=== PATIENT | female | born 1935 | race Caucasian/White ===

== ENCOUNTER 2021-09-14 22:33 | Inpatient (IN) | payer OTHER, MEDICAID ==
[~2021-09-14] VITALS: Ht 157.5 cm; Wt 60.8 kg
[~2021-09-14 22:33] MED LIST: APRE30TA2 PO; ATOR20TA64 PO; CIPR500T5 PO; DEPS125 PO; GLIP5TAB26 PO; IBUP-1969 PO; INSU100V11 SQ; LEVO112T5 PO; MEMA5TAB PO; METO25TA6 PO; MIRT-114 PO
[2021-09-14 22:36] VITALS: BP_SYST 121
[2021-09-14] MEDS ORDERED: OLANZapine IntraMuscular 10 MG VIAL (FOR I.M. INJECTION ONLY) IM ONE (23:45)
[2021-09-14] MEDS ORDERED: NACL 0.9% 1,000 ML IV ONE (23:45)
[2021-09-15] MEDS ORDERED: OLANZapine 5 MG TABLET ONE ×2 (00:29→00:49)
[2021-09-15] MEDS ORDERED: OLANZapine 2.5 MG TABLET ONE (00:30)
[2021-09-15 00:38] LABS: BASOPHILS # (AUTO) 0.1 K/uL (0.0-0.2); EOSINOPHILS # (AUTO) 0.2 K/uL (0.0-0.4); EOSINOPHILS % (AUTO) 2.7 % (0.0-4.0); HEMATOCRIT 35.1 % (36-48); HEMOGLOBIN 12.1 g/dL (12.0-16.0); LYMPHOCYTES # (AUTO) 2.4 K/uL (1.0-5.5); LYMPHOCYTES % (AUTO) 33.7 % (20.5-51.5); MEAN CORPUSCULAR HEMOGLOBIN 33 pg (27-31); MEAN CORPUSCULAR HGB CONC 35 % (32-36); MEAN CORPUSCULAR VOLUME 95 fL (79.0-98.0); MONOCYTES # (AUTO) 0.6 K/uL (0.0-1.0); MONOCYTES % (AUTO) 8.3 % (1.7-9.3); NEUTROPHILS # (AUTO) 3.9 K/uL (1.8-7.7); NEUTROPHILS % (AUTO) 54.3 % (40.0-70.0); PLATELET COUNT (AUTO) 139 K/uL (130-430); RED BLOOD CELL COUNT(AUTO) 3.71 MIL/uL (4.2-6.2); RED CELL DISTRIBUTION WIDTH 13.5 % (9.0-15.0); WHITE BLOOD COUNT (AUTO) 7.2 K/uL (4.8-10.8)
[2021-09-15 00:45] LABS: ANION GAP 9 (5-15); CALCIUM 8.9 mg/dL (8.4-11.0); CHLORIDE 106 mmol/L (98-107); CREATININE 1.15 mg/dL (0.55-1.30); GLUCOSE 234 mg/dL (70-99); POTASSIUM 4.2 mmol/L (3.5-5.1); SODIUM SERUM 140 mmol/L (136-145); UREA NITROGEN, BLOOD 27 mg/dL (8-21)
[2021-09-15] MEDS ORDERED: OLANZapine 5 MG TABLET PO ONE (00:45)
[2021-09-15 00:49] LABS: PROTHROMBIN TIME 10.9 SECS (9.5-12.5)
[2021-09-15 01:01] LABS: ALANINE AMINOTRANSFERASE 22 U/L (12-78); ALBUMIN 3.4 g/dL (3.4-4.8); ASPARTATE AMINOTRANSFERASE 23 U/L (10-37); TOTAL BILIRUBIN 0.4 mg/dL (0.0-1.0)
[2021-09-15 01:06] LABS: ACETAMINOPHEN < 1 ug/mL (1-30); ALCOHOL, BLOOD < 3 mg/dL (<10)
[2021-09-15 01:36] LABS: BILIRUBIN,URINE NEGATIVE (NEGATIVE); BLOOD, URINE NEGATIVE (NEGATIVE); CLARITY/URINE SL CLOUDY (CLEAR); COLOR,URINE YELLOW (YELLOW); GLUCOSE,URINE 1+ (NEGATIVE); KETONES,URINE NEGATIVE (NEGATIVE); LEUKOCYTE ESTERASE ,URINE 1+ (NEGATIVE); NITRITE, URINE NEGATIVE (NEGATIVE); PH,URINE 5.5 (5.0-8.0); PROTEIN URINE NEGATIVE (NEGATIVE); UROBILINOGEN,URINE 0.2 (0.2-1.0)
[2021-09-15 01:56] LABS: BARBITURATE, URINE NEGATIVE (NEG <=200); BENZODIAZEPINE, URINE NEGATIVE (NEG <=150); CANNABINOID, URINE NEGATIVE (NEG <=50); COCAINE, URINE NEGATIVE (NEG <=150); METHAMPHETAMINES SCREEN,URINE NEGATIVE (NEG <=500); OPIATE, URINE NEGATIVE (NEG <=100); PHENCYCLIDINE SCREEN,URINE NEGATIVE (NEG <=25); UR TRICYCLIC ANTIDEPRESSANTS NEGATIVE (NEG <=300); URINE AMPHETAMINE NEGATIVE (NEG <=500); URINE METHADONE NEGATIVE (NEG <=200); URINE OXYCODONE SCREEN NEGATIVE (NEG <=100); URINE PROPOXYPHENE SCREEN NEGATIVE (NEG <=300)
[2021-09-15 02:20] LABS: BACTERIA,URINE FEW /HPF (None Seen); RBC,URINE 0-3 /HPF (0-3)
[2021-09-15] MEDS ORDERED: PIPERACILLIN/TAZO 3.375 GM in NS 50 ML IV ONE ×4 (03:00)
[2021-09-15] MEDS ORDERED: ONDANSETRON HCL 4 MG/2 ML VIAL IVP PRN (03:00)
[2021-09-15] MEDS ORDERED: PIPERACILLIN/TAZOBACTAM 3.375 GM/VIAL (ZOSYN) IV ONE (03:39)
[2021-09-15 04:17] VITALS: BP_SYST 128
[2021-09-15] MEDS ORDERED: DOCU-144 PO (05:59)
[2021-09-15] MEDS ORDERED: HYDR-500 PO (05:59)
[2021-09-15] MEDS ORDERED: BISA10SU61 RC (05:59)
[2021-09-15] MEDS ORDERED: TRAM50TA PO (05:59)
[2021-09-15] MEDS ORDERED: SENN8.6T19 PO (05:59)
[2021-09-15] MEDS ORDERED: ACET325T53 PO (05:59)
[2021-09-15] MEDS ORDERED: MOM PO (05:59)
[2021-09-15] MEDS ORDERED: INSU100V SQ (05:59)
[2021-09-15] MEDS ORDERED: CEPH250C PO (05:59)
[2021-09-15] MEDS ORDERED: DIPH25TA62 PO (05:59)
[2021-09-15] MEDS ORDERED: CRAN450T9 PO (05:59)
[2021-09-15] MEDS: INSULIN LISPRO SLIDING SCALE 100 UNITS/ML VIAL (humaLOG) SUBCUT SCH ×4 (06:45→21:27)
[2021-09-15 08:00] VITALS: BP_SYST 129
[2021-09-15] MEDS ORDERED: IBUPROFEN 600 MG TABLET PO PRN (09:00)
[2021-09-15] MEDS ORDERED: ACETAMINOPHEN 325 MG TABLET PO PRN (09:00)
[2021-09-15] MEDS: LEVOTHYROXINE SODIUM 0.112 MG TABLET PO SCH (10:09)
[2021-09-15] MEDS: glipiZIDE XL 5 MG TAB ( GLUCOTROL XL) PO SCH (10:09)
[2021-09-15] MEDS: MEMANTINE HCL 5 MG TABLET PO SCH ×2 (10:09→20:51)
[2021-09-15] MEDS: DOCUSATE SODIUM 100 MG CAPSULE PO SCH ×2 (10:09→20:51)
[2021-09-15] MEDS: DIVALPROEX SODIUM 125 MG CAP.(DEPAKOTE SPRINKLE) PO SCH (10:09)
[2021-09-15] MEDS: ATORVASTATIN 20 MG TABLET PO SCH (10:10)
[2021-09-15] MEDS: METOPROLOL TARTRATE 25 MG TABLET PO SCH (10:12)
[2021-09-15 12:00] VITALS: BP_SYST 146
[2021-09-15] MEDS: cefTRIAXone 1 GM in D5W 50 ML IV SCH (13:35)
[2021-09-15 16:00] VITALS: BP_SYST 116
[2021-09-15 19:30] VITALS: BP_SYST 141
[2021-09-15] MEDS: INSULIN GLARGINE 100 UNITS/ML 10 ML VIAL SQ SCH (21:15)
[2021-09-15] MEDS: DIPHENHYDRAMINE INJ 50 MG/ML VIAL IVP PRN (21:22)
[2021-09-15 23:32] VITALS: BP_SYST 135
[2021-09-16] MEDS ORDERED: KETOROLAC TROMETHAMINE 15 MG VIAL IVP PRN
[2021-09-16] MEDS ORDERED: OLANZapine 5 MG TABLET PO PRN
[2021-09-16] MEDS: DIPHENHYDRAMINE INJ 50 MG/ML VIAL IVP PRN (06:13)
[2021-09-16] MEDS: INSULIN LISPRO SLIDING SCALE 100 UNITS/ML VIAL (humaLOG) SUBCUT SCH ×4 (06:14→22:31)
[2021-09-16] MEDS: DOCUSATE SODIUM 100 MG CAPSULE PO SCH ×2 (09:47→21:47)
[2021-09-16] MEDS: ATORVASTATIN 20 MG TABLET PO SCH (09:47)
[2021-09-16] MEDS: cefTRIAXone 1 GM in D5W 50 ML IV SCH (09:47)
[2021-09-16] MEDS: DIVALPROEX SODIUM 125 MG CAP.(DEPAKOTE SPRINKLE) PO SCH (09:47)
[2021-09-16] MEDS: METOPROLOL TARTRATE 25 MG TABLET PO SCH (09:48)
[2021-09-16] MEDS: LEVOTHYROXINE SODIUM 0.112 MG TABLET PO SCH (09:48)
[2021-09-16] MEDS: MEMANTINE HCL 5 MG TABLET PO SCH ×2 (09:48→21:47)
[2021-09-16] MEDS: glipiZIDE XL 5 MG TAB ( GLUCOTROL XL) PO SCH (09:48)
[2021-09-16 20:00] VITALS: BP_SYST 127
[2021-09-16] MEDS: INSULIN GLARGINE 100 UNITS/ML 10 ML VIAL SQ SCH (22:33)
[2021-09-17 01:23] VITALS: BP_SYST 113
[2021-09-17] MEDS: INSULIN LISPRO SLIDING SCALE 100 UNITS/ML VIAL (humaLOG) SUBCUT SCH ×4 (06:15→20:50)
[2021-09-17 08:00] VITALS: BP_SYST 100
[2021-09-17] MEDS: METOPROLOL TARTRATE 25 MG TABLET PO SCH (09:00)
[2021-09-17] MEDS: DIVALPROEX SODIUM 125 MG CAP.(DEPAKOTE SPRINKLE) PO SCH (09:25)
[2021-09-17] MEDS: glipiZIDE XL 5 MG TAB ( GLUCOTROL XL) PO SCH (09:25)
[2021-09-17] MEDS: ATORVASTATIN 20 MG TABLET PO SCH (09:25)
[2021-09-17] MEDS: LEVOTHYROXINE SODIUM 0.112 MG TABLET PO SCH (09:26)
[2021-09-17] MEDS: DOCUSATE SODIUM 100 MG CAPSULE PO SCH ×2 (09:26→20:44)
[2021-09-17] MEDS: MEMANTINE HCL 5 MG TABLET PO SCH ×2 (09:26→20:44)
[2021-09-17] MEDS: cefTRIAXone 1 GM in D5W 50 ML IV SCH (10:33)
[2021-09-17 11:32] VITALS: BP_SYST 112
[2021-09-17 15:22] VITALS: BP_SYST 120
[2021-09-17 20:00] VITALS: BP_SYST 119
[2021-09-17] MEDS: INSULIN GLARGINE 100 UNITS/ML 10 ML VIAL SQ SCH (20:51)
[2021-09-18 00:33] VITALS: BP_SYST 112
[2021-09-18] MEDS: DIPHENHYDRAMINE INJ 50 MG/ML VIAL IVP PRN (04:34)
[2021-09-18] MEDS: INSULIN LISPRO SLIDING SCALE 100 UNITS/ML VIAL (humaLOG) SUBCUT SCH ×3 (06:31→17:25)
[2021-09-18] MEDS: ATORVASTATIN 20 MG TABLET PO SCH (09:58)
[2021-09-18] MEDS: DIVALPROEX SODIUM 125 MG CAP.(DEPAKOTE SPRINKLE) PO SCH (09:59)
[2021-09-18] MEDS: glipiZIDE XL 5 MG TAB ( GLUCOTROL XL) PO SCH (09:59)
[2021-09-18] MEDS: MEMANTINE HCL 5 MG TABLET PO SCH (09:59)
[2021-09-18] MEDS: LEVOTHYROXINE SODIUM 0.112 MG TABLET PO SCH (09:59)
[2021-09-18] MEDS: METOPROLOL TARTRATE 25 MG TABLET PO SCH (09:59)
[2021-09-18] MEDS: DOCUSATE SODIUM 100 MG CAPSULE PO SCH (10:00)
[2021-09-18] MEDS: cefTRIAXone 1 GM in D5W 50 ML IV SCH (10:41)
[2021-09-18 11:22] VITALS: BP_SYST 127
[2021-09-18 15:35] VITALS: BP_SYST 140
== END 2021-09-18 19:20 | DRG 689 ==
LOC: SED 22:33 → SMU 09-15 03:00
PROVIDERS: ADMIT Family Medicine; ATTEND Family Medicine
DX: N39.0 Urinary tract infection, site not specified (principal); G93.41 Metabolic encephalopathy; E78.5 Hyperlipidemia, unspecified; I10 Essential (primary) hypertension; F31.9 Bipolar disorder, unspecified; G30.9 Alzheimer's disease, unspecified; F02.80 Dementia in other diseases classified elsewhere, unspecified severity, without behavioral disturbance, psychotic disturbance, mood disturbance, and anxiety; I48.91 Unspecified atrial fibrillation; E11.65 Type 2 diabetes mellitus with hyperglycemia; Z20.822 Contact with and (suspected) exposure to COVID-19
CPT/HCPCS: 36415; 70450-TC; 71045; 76376; 80053; 80307; 81000; 82962; 83605; 84484; 85025; 85610-TC; 85730-TC; 87040; 87081; 87086; 93005; 96360; 99285; G0480; G0481; G0482; J0696; J1200; J1815; J1885; J2405; J2543; J3490; J7060

== ENCOUNTER 2022-01-01 13:59 | Emergency (ER) | payer OTHER, MEDICAID ==
[~2022-01-01] VITALS: Ht 160 cm; Wt 74.8 kg
[~2022-01-01 13:59] MED LIST changes: +ACET325T53 PO; +BISA10SU61 RC; -CIPR500T5 PO; +CRAN450T9 PO; +DIPH25TA62 PO; +DOCU-144 PO; +HYDR-500 PO; +INSU100V SQ; +MOM PO; +SENN8.6T19 PO; +TRAM50TA PO
[2022-01-01 14:06] VITALS: BP_SYST 139
[2022-01-01] MEDS ORDERED: NACL 0.9% 1,000 ML IV ONE ×2 (14:15→14:30)
[2022-01-01] MEDS ORDERED: fentaNYL CITRATE/PF 100 MCG/2 ML AMP IVP ONE (14:30)
[2022-01-01 14:46] LABS: BASOPHILS % (AUTO) 0.6 % (0.0-2.0); EOSINOPHILS # (AUTO) 0.1 K/uL (0.0-0.4); HEMATOCRIT 35.1 % (36-48); HEMOGLOBIN 12.2 g/dL (12.0-16.0); LYMPHOCYTES # (AUTO) 2.7 K/uL (1.0-5.5); LYMPHOCYTES % (AUTO) 30.1 % (20.5-51.5); MEAN CORPUSCULAR HEMOGLOBIN 32 pg (27-31); MEAN CORPUSCULAR HGB CONC 35 % (32-36); MEAN CORPUSCULAR VOLUME 94 fL (79.0-98.0); MONOCYTES # (AUTO) 0.6 K/uL (0.0-1.0); MONOCYTES % (AUTO) 6.8 % (1.7-9.3); NEUTROPHILS # (AUTO) 5.5 K/uL (1.8-7.7); NEUTROPHILS % (AUTO) 61.5 % (40.0-70.0); PLATELET COUNT (AUTO) 135 K/uL (130-430); RED BLOOD CELL COUNT(AUTO) 3.76 MIL/uL (4.2-6.2); RED CELL DISTRIBUTION WIDTH 13.6 % (9.0-15.0)
[2022-01-01 15:16] LABS: ANION GAP 11 (5-15); CHLORIDE 103 mmol/L (98-107); CREATININE 1.24 mg/dL (0.55-1.30); GLUCOSE 196 mg/dL (70-99); POTASSIUM 3.9 mmol/L (3.5-5.1); UREA NITROGEN, BLOOD 24 mg/dL (8-21)
[2022-01-01 15:27] LABS: ALANINE AMINOTRANSFERASE 23 U/L (12-78); ALBUMIN 3.1 g/dL (3.4-4.8); ASPARTATE AMINOTRANSFERASE 32 U/L (10-37); LIPASE 42 U/L (73-393); TOTAL BILIRUBIN 0.4 mg/dL (0.0-1.0)
[2022-01-01 16:08] LABS: BILIRUBIN,URINE NEGATIVE (NEGATIVE); CLARITY/URINE SL CLOUDY (CLEAR); COLOR,URINE YELLOW (YELLOW); GLUCOSE,URINE 1+ (NEGATIVE); KETONES,URINE TRACE (NEGATIVE); LEUKOCYTE ESTERASE ,URINE 1+ (NEGATIVE); NITRITE, URINE POSITIVE (NEGATIVE); PROTEIN URINE NEGATIVE (NEGATIVE); UROBILINOGEN,URINE 0.2 (0.2-1.0)
[2022-01-01 16:21] LABS: BLOOD, URINE TRACE (NEGATIVE)
[2022-01-01 16:22] LABS: BACTERIA,URINE MANY /HPF (None Seen); RBC,URINE 0-3 /HPF (0-3); WBC,URINE 50-80 /HPF (0-3)
[2022-01-01] MEDS ORDERED: cefTRIAXone 1 GM IVPB PREMIX 50 ML IV ONE (16:45)
[2022-01-01] MEDS ORDERED: HYDR-3917 PO (16:57)
[2022-01-01] MEDS ORDERED: CEPH-548 PO (16:57)
[2022-01-01 19:42] VITALS: BP_SYST 139
== END 2022-01-01 19:05 | disposition home or self-care (01) ==
LOC: SED 13:59
DX: K80.80 Other cholelithiasis without obstruction (principal); K57.90 Diverticulosis of intestine, part unspecified, without perforation or abscess without bleeding; N39.0 Urinary tract infection, site not specified; Z79.4 Long term (current) use of insulin; Z79.899 Other long term (current) drug therapy; Z20.822 Contact with and (suspected) exposure to COVID-19
CPT/HCPCS: 99285; 74176; 96365; 71045; 96375; 87426; 80053; 81000; 83690; 85025; 87040; 87086; 36415; 76376; 83605; J0696; J3010; 93005

== ENCOUNTER 2022-11-27 17:22 | Inpatient (IN) | payer OTHER, MEDICAID ==
[~2022-11-27] VITALS: Ht 157.5 cm; Wt 66.7 kg
[2022-11-27 17:22] VITALS: BP_SYST 141; PULSE 152; RESP 24; TEMP 97.2; O2SAT 100
[~2022-11-27 17:22] MED LIST changes: -ACET325T53 PO; -APRE30TA2 PO; +APRE30TA4 PO; -BISA10SU61 RC; -HYDR-500 PO; -INSU100V SQ; -MIRT-114 PO; +NEU100 PO; +SSNOVOLOG SUBCUT; -TRAM50TA PO; +TRAZ-250 PO; +XALEYE BOTH EYES
[2022-11-27] MEDS ORDERED: dilTIAZem HCL IVP 5 MG/ML VIAL IVP ONE (17:30)
[2022-11-27 18:21] LABS: BASOPHILS % (AUTO) 0.3 % (0.0-2.0); EOSINOPHILS # (AUTO) 0.1 K/uL (0.0-0.4); EOSINOPHILS % (AUTO) 0.5 % (0.0-4.0); HEMATOCRIT 39.7 % (36-48); LYMPHOCYTES # (AUTO) 2.2 K/uL (1.0-5.5); LYMPHOCYTES % (AUTO) 16.1 % (20.5-51.5); MEAN CORPUSCULAR HEMOGLOBIN 31 pg (27-31); MEAN CORPUSCULAR HGB CONC 33 % (32-36); MEAN CORPUSCULAR VOLUME 96 fL (79.0-98.0); MONOCYTES # (AUTO) 1.1 K/uL (0.0-1.0); MONOCYTES % (AUTO) 8.3 % (1.7-9.3); NEUTROPHILS % (AUTO) 74.8 % (40.0-70.0); PLATELET COUNT (AUTO) 178 K/uL (130-430); RED BLOOD CELL COUNT(AUTO) 4.13 MIL/uL (4.2-6.2); RED CELL DISTRIBUTION WIDTH 14.2 % (9.0-15.0); WHITE BLOOD COUNT (AUTO) 13.4 K/uL (4.8-10.8)
[2022-11-27 18:25] LABS: ANION GAP 7 (5-15); CARBON DIOXIDE 31 mmol/L (23-29); CHLORIDE 96 mmol/L (98-107); CREATININE 1.04 mg/dL (0.55-1.30); GLUCOSE 323 mg/dL (74-106); POTASSIUM 4.7 mmol/L (3.5-5.1); SODIUM SERUM 134 mmol/L (136-145); UREA NITROGEN, BLOOD 20 mg/dL (8-21)
[2022-11-27 18:29] LABS: PROTHROMBIN TIME 10.2 SECS (9.5-12.5)
[2022-11-27] MEDS ORDERED: *LOVENOX 1MG/KG Q12H/PHARMACY XX ONE ×2 (20:15→21:15)
[2022-11-27] MEDS ORDERED: ENOXAPARIN SODIUM 80 MG/0.8 ML SYRINGE SUBCUT ONE (20:45)
[2022-11-27] MEDS ORDERED: INSULIN REGULAR, HUMAN 100 UNITS/ML, 3 ML VIAL (humuLIN R) SUBCUT PRN (21:15)
[2022-11-27] MEDS ORDERED: BISACODYL RC (21:46)
[2022-11-27] MEDS ORDERED: APRE30TA4 PO (21:46)
[2022-11-27] MEDS ORDERED: CLOBETASOL CREAM TP (21:46)
[2022-11-27] MEDS ORDERED: ACET-2634 PO (21:46)
[2022-11-27] MEDS ORDERED: DIPH50CA38 PO (21:46)
[2022-11-27] MEDS ORDERED: ACET-73 PO (21:46)
[2022-11-27] MEDS ORDERED: SENN-153 PO (21:46)
[2022-11-27] MEDS ORDERED: CALC60OI5 TP (21:46)
[2022-11-27] MEDS ORDERED: MULT-1117 PO (21:46)
[2022-11-27 22:09] LABS: BILIRUBIN,URINE NEGATIVE (NEGATIVE); CLARITY/URINE Slightly Cloudy (CLEAR); COLOR,URINE YELLOW (YELLOW); GLUCOSE,URINE NEGATIVE (NEGATIVE); LEUKOCYTE ESTERASE ,URINE 1+ (NEGATIVE); NITRITE, URINE POSITIVE (NEGATIVE); UROBILINOGEN,URINE 0.2 (0.2-1.0)
[2022-11-27 22:14] LABS: BLOOD, URINE TRACE (NEGATIVE); KETONES,URINE NEGATIVE (NEGATIVE); PROTEIN URINE TRACE (NEGATIVE)
[2022-11-27 22:24] LABS: BACTERIA,URINE MANY /HPF (None Seen); WBC,URINE >100 /HPF (0-3)
[2022-11-27 22:25] LABS: MUCUS,URINE 1+ /LPF (None Seen)
[2022-11-28] VITALS (29 sets, daily range): BP systolic 95–156; PULSE 91–120; RESP 14–30; TEMP 96.4–99; O2SAT 89–100
[2022-11-28] MEDS ORDERED: NITROGLYCERIN 0.4 MG TAB.SUBL SL PRN (00:45)
[2022-11-28] MEDS ORDERED: NITROGLYCERIN 0.4 MG TAB.SUBL SL ONE (00:47)
[2022-11-28] MEDS ORDERED: MORPHINE 2 MG/ML INJ. SYRINGE ONE (01:05)
[2022-11-28] MEDS: MORPHINE 2 MG/ML INJ. SYRINGE IVP PRN (05:53)
[2022-11-28 06:01] LABS: BASOPHILS # (AUTO) 0.2 K/uL (0.0-0.2); BASOPHILS % (AUTO) 1.6 % (0.0-2.0); EOSINOPHILS # (AUTO) 0.1 K/uL (0.0-0.4); EOSINOPHILS % (AUTO) 0.9 % (0.0-4.0); HEMATOCRIT 36.4 % (36-48); HEMOGLOBIN 11.8 g/dL (12.0-16.0); LYMPHOCYTES # (AUTO) 2.3 K/uL (1.0-5.5); LYMPHOCYTES % (AUTO) 18.1 % (20.5-51.5); MEAN CORPUSCULAR HEMOGLOBIN 32 pg (27-31); MEAN CORPUSCULAR HGB CONC 32 % (32-36); MEAN CORPUSCULAR VOLUME 97 fL (79.0-98.0); NEUTROPHILS # (AUTO) 9.2 K/uL (1.8-7.7); NEUTROPHILS % (AUTO) 71.4 % (40.0-70.0); PLATELET COUNT (AUTO) 171 K/uL (130-430); RED BLOOD CELL COUNT(AUTO) 3.74 MIL/uL (4.2-6.2); RED CELL DISTRIBUTION WIDTH 14.2 % (9.0-15.0); WHITE BLOOD COUNT (AUTO) 12.9 K/uL (4.8-10.8)
[2022-11-28 06:12] LABS: ALANINE AMINOTRANSFERASE 19 U/L (12-78); ALBUMIN 2.9 g/dL (3.4-4.8); ANION GAP 8 (5-15); ASPARTATE AMINOTRANSFERASE 22 U/L (10-37); CALCIUM 8.9 mg/dL (8.4-11.0); CARBON DIOXIDE 31 mmol/L (23-29); CHLORIDE 98 mmol/L (98-107); CREATININE 0.86 mg/dL (0.55-1.30); GLUCOSE 144 mg/dL (74-106); POTASSIUM 4.4 mmol/L (3.5-5.1); SODIUM SERUM 137 mmol/L (136-145); TOTAL BILIRUBIN 0.5 mg/dL (0.0-1.0); TOTAL PROTEIN, SERUM 6.9 g/dL (6.4-8.3); UREA NITROGEN, BLOOD 17 mg/dL (8-21)
[2022-11-28] MEDS ORDERED: ACETAMINOPHEN 500 MG TABLET PO PRN (07:45)
[2022-11-28] MEDS ORDERED: INSULIN ASPART 100 UNITS/ML, 10 ML VIAL (NovoLOG) SUBCUT PRN (08:00)
[2022-11-28] MEDS ORDERED: FUROSEMIDE 20 MG/2 ML VIAL IVP ONE (08:30)
[2022-11-28 09:02] LABS: COVID19 ANTIGEN SOFIA FIA NEGATIVE (NEGATIVE)
[2022-11-28 09:07] LABS: INFLUENZA TYPE A negative (NEGATIVE); INFLUENZA TYPE B NEGATIVE (NEGATIVE)
[2022-11-28] MEDS: GABAPENTIN 100 MG CAPSULE PO SCH (09:51)
[2022-11-28] MEDS: DIVALPROEX SODIUM 125 MG CAP.(DEPAKOTE SPRINKLE) PO SCH (09:52)
[2022-11-28] MEDS: LEVOTHYROXINE SODIUM 0.112 MG TABLET PO SCH (09:52)
[2022-11-28] MEDS: ATORVASTATIN 20 MG TABLET PO SCH (09:52)
[2022-11-28] MEDS: METOPROLOL TARTRATE 25 MG TABLET PO SCH ×2 (09:53→21:00)
[2022-11-28] MEDS: MEMANTINE HCL 5 MG TABLET PO SCH ×2 (09:53→21:00)
[2022-11-28] MEDS ORDERED: cefTRIAXone 1 GM IVPB PREMIX 50 ML IV SCH (10:00)
[2022-11-28] MEDS ORDERED: PROMETHAZINE-DM 6.25 MG-15 MG/5 ML UDC PO PRN (12:00)
[2022-11-28] MEDS: INSULIN LISPRO SLIDING SCALE 100 UNITS/ML, 3 ML VIAL (humaLOG) SUBCUT PRN ×3 (12:46→21:55)
[2022-11-28] MEDS ORDERED: PIPERACILLIN/TAZO 4.5GM/DEX-IS 100 ML IV ONE (15:15)
[2022-11-28] MEDS ORDERED: LevALBUTEROL HCL 1.25 MG/0.5 ML *CONC.* VIAL.NEB (XOPENEX CONC.) INH PRN (15:15)
[2022-11-28] MEDS ORDERED: LevALBUTEROL HCL 1.25 MG/0.5 ML *CONC.* VIAL.NEB (XOPENEX CONC.) INH ONE (15:15)
[2022-11-28] MEDS: ACETYLCYSTEINE 20% 4 ML VIAL (RT) INH SCH (19:16)
[2022-11-28] MEDS: LevALBUTEROL HCL 1.25 MG/0.5 ML *CONC.* VIAL.NEB (XOPENEX CONC.) INH SCH (19:17)
[2022-11-28] MEDS: traZODone HCL 50 MG TABLET (DESYREL) PO SCH (21:00)
[2022-11-28] MEDS: PIPERACILLIN/TAZO 4.5GM/DEX-IS 100 ML IV SCH (21:59)
[2022-11-28] MEDS: LATANOPROST 2.5 ML DROPS (XALATAN) BOTH EYES SCH (23:01)
[2022-11-29] VITALS (29 sets, daily range): BP systolic 93–128; PULSE 81–124; RESP 3–34; TEMP 96.8–97.6; O2SAT 90–98
[2022-11-29] MEDS: ACETYLCYSTEINE 20% 4 ML VIAL (RT) INH SCH ×4 (00:46→20:01)
[2022-11-29] MEDS: LevALBUTEROL HCL 1.25 MG/0.5 ML *CONC.* VIAL.NEB (XOPENEX CONC.) INH SCH ×4 (00:46→20:01)
[2022-11-29 05:07] LABS: BASOPHILS # (AUTO) 0.1 K/uL (0.0-0.2); BASOPHILS % (AUTO) 0.4 % (0.0-2.0); HEMATOCRIT 37.1 % (36-48); HEMOGLOBIN 12.1 g/dL (12.0-16.0); LYMPHOCYTES # (AUTO) 1.2 K/uL (1.0-5.5); LYMPHOCYTES % (AUTO) 7.7 % (20.5-51.5); MEAN CORPUSCULAR HEMOGLOBIN 31 pg (27-31); MEAN CORPUSCULAR HGB CONC 33 % (32-36); MEAN CORPUSCULAR VOLUME 96 fL (79.0-98.0); MONOCYTES # (AUTO) 1.6 K/uL (0.0-1.0); MONOCYTES % (AUTO) 10.7 % (1.7-9.3); NEUTROPHILS # (AUTO) 12.1 K/uL (1.8-7.7); NEUTROPHILS % (AUTO) 81.2 % (40.0-70.0); PLATELET COUNT (AUTO) 174 K/uL (130-430); RED BLOOD CELL COUNT(AUTO) 3.86 MIL/uL (4.2-6.2); RED CELL DISTRIBUTION WIDTH 13.9 % (9.0-15.0); WHITE BLOOD COUNT (AUTO) 14.9 K/uL (4.8-10.8)
[2022-11-29 05:15] LABS: ANION GAP 7 (5-15); CALCIUM 8.8 mg/dL (8.4-11.0); CARBON DIOXIDE 34 mmol/L (23-29); CHLORIDE 97 mmol/L (98-107); CREATININE 1.33 mg/dL (0.55-1.30); GLUCOSE 252 mg/dL (74-106); POTASSIUM 4.6 mmol/L (3.5-5.1); SODIUM SERUM 138 mmol/L (136-145); UREA NITROGEN, BLOOD 26 mg/dL (8-21)
[2022-11-29 05:31] LABS: ALANINE AMINOTRANSFERASE 15 U/L (12-78); ALBUMIN 2.8 g/dL (3.4-4.8); ASPARTATE AMINOTRANSFERASE 13 U/L (10-37); THYROID STIMULATING HORMONE 0.58 uIu/mL (0.34-4.82); TOTAL BILIRUBIN 0.6 mg/dL (0.0-1.0); TOTAL PROTEIN, SERUM 7.1 g/dL (6.4-8.3)
[2022-11-29] MEDS: PIPERACILLIN/TAZO 4.5GM/DEX-IS 100 ML IV SCH ×3 (06:05→21:07)
[2022-11-29] MEDS: INSULIN LISPRO SLIDING SCALE 100 UNITS/ML, 3 ML VIAL (humaLOG) SUBCUT PRN ×3 (06:07→21:30)
[2022-11-29 07:48] LABS: BLOOD GAS BASE EXCESS 0.7 mmol/L (-3.0-3.0); BLOOD GAS HCO3 27.6 mmol/L (21.0-27.0); BLOOD GAS PH 7.335 (7.350-7.450)
[2022-11-29 07:52] LABS: ALLEN'S TEST POSITIVE (P); BLOOD GAS PCO2 52.9 mmHg (35.0-45.0)
[2022-11-29] MEDS: FUROSEMIDE 20 MG/2 ML VIAL IVP SCH (08:43)
[2022-11-29] MEDS: GABAPENTIN 100 MG CAPSULE PO SCH (09:00)
[2022-11-29] MEDS: LEVOTHYROXINE SODIUM 0.112 MG TABLET PO SCH (09:00)
[2022-11-29] MEDS: ATORVASTATIN 20 MG TABLET PO SCH (09:00)
[2022-11-29] MEDS: MEMANTINE HCL 5 MG TABLET PO SCH ×2 (09:00→20:55)
[2022-11-29] MEDS: METOPROLOL TARTRATE 25 MG TABLET PO SCH ×2 (09:00→20:55)
[2022-11-29] MEDS: DIVALPROEX SODIUM 125 MG CAP.(DEPAKOTE SPRINKLE) PO SCH (09:00)
[2022-11-29] MEDS: D5/0.45 NS 1,000 ML IV SCH (12:36)
[2022-11-29] MEDS: MORPHINE 2 MG/ML INJ. SYRINGE IVP PRN (13:57)
[2022-11-29] MEDS: traZODone HCL 50 MG TABLET (DESYREL) PO SCH (20:55)
[2022-11-29] MEDS: LATANOPROST 2.5 ML DROPS (XALATAN) BOTH EYES SCH (20:56)
[2022-11-30] VITALS (28 sets, daily range): BP systolic 106–136; PULSE 88–110; RESP 14–32; TEMP 97.2–98.7; O2SAT 87–99
[2022-11-30] MEDS: ACETYLCYSTEINE 20% 4 ML VIAL (RT) INH SCH ×4 (00:50→20:01)
[2022-11-30] MEDS: LevALBUTEROL HCL 1.25 MG/0.5 ML *CONC.* VIAL.NEB (XOPENEX CONC.) INH SCH ×4 (00:50→20:04)
[2022-11-30] MEDS: MORPHINE 2 MG/ML INJ. SYRINGE IVP PRN ×2 (01:34→15:26)
[2022-11-30] MEDS: D5/0.45 NS 1,000 ML IV SCH ×2 (02:54→18:09)
[2022-11-30 05:18] LABS: BASOPHILS # (AUTO) 0.1 K/uL (0.0-0.2); BASOPHILS % (AUTO) 0.3 % (0.0-2.0); EOSINOPHILS % (AUTO) 0.3 % (0.0-4.0); HEMATOCRIT 35.9 % (36-48); HEMOGLOBIN 11.7 g/dL (12.0-16.0); LYMPHOCYTES # (AUTO) 1.6 K/uL (1.0-5.5); LYMPHOCYTES % (AUTO) 10.8 % (20.5-51.5); MEAN CORPUSCULAR HEMOGLOBIN 31 pg (27-31); MEAN CORPUSCULAR HGB CONC 33 % (32-36); MEAN CORPUSCULAR VOLUME 96 fL (79.0-98.0); MONOCYTES # (AUTO) 1.7 K/uL (0.0-1.0); MONOCYTES % (AUTO) 11.3 % (1.7-9.3); NEUTROPHILS # (AUTO) 11.5 K/uL (1.8-7.7); NEUTROPHILS % (AUTO) 77.3 % (40.0-70.0); PLATELET COUNT (AUTO) 157 K/uL (130-430); RED BLOOD CELL COUNT(AUTO) 3.74 MIL/uL (4.2-6.2); RED CELL DISTRIBUTION WIDTH 13.7 % (9.0-15.0); WHITE BLOOD COUNT (AUTO) 14.9 K/uL (4.8-10.8)
[2022-11-30 05:32] LABS: ALANINE AMINOTRANSFERASE 7 U/L (12-78); ALBUMIN 2.6 g/dL (3.4-4.8); ANION GAP 6 (5-15); ASPARTATE AMINOTRANSFERASE 13 U/L (10-37); CALCIUM 8.7 mg/dL (8.4-11.0); CARBON DIOXIDE 35 mmol/L (23-29); CHLORIDE 99 mmol/L (98-107); CREATININE 1.05 mg/dL (0.55-1.30); GLUCOSE 227 mg/dL (74-106); POTASSIUM 4.1 mmol/L (3.5-5.1); SODIUM SERUM 140 mmol/L (136-145); TOTAL BILIRUBIN 0.8 mg/dL (0.0-1.0); TOTAL PROTEIN, SERUM 6.8 g/dL (6.4-8.3); UREA NITROGEN, BLOOD 24 mg/dL (8-21)
[2022-11-30] MEDS: PIPERACILLIN/TAZO 4.5GM/DEX-IS 100 ML IV SCH ×3 (06:25→21:39)
[2022-11-30] MEDS: FUROSEMIDE 20 MG/2 ML VIAL IVP SCH (08:10)
[2022-11-30] MEDS: LEVOTHYROXINE SODIUM 0.112 MG TABLET PO SCH (09:00)
[2022-11-30] MEDS: METOPROLOL TARTRATE 25 MG TABLET PO SCH ×2 (09:00→20:35)
[2022-11-30] MEDS: ATORVASTATIN 20 MG TABLET PO SCH (09:00)
[2022-11-30] MEDS: GABAPENTIN 100 MG CAPSULE PO SCH (09:00)
[2022-11-30] MEDS: DIVALPROEX SODIUM 125 MG CAP.(DEPAKOTE SPRINKLE) PO SCH (09:00)
[2022-11-30] MEDS: MEMANTINE HCL 5 MG TABLET PO SCH ×2 (09:00→20:35)
[2022-11-30] MEDS: INSULIN LISPRO SLIDING SCALE 100 UNITS/ML, 3 ML VIAL (humaLOG) SUBCUT PRN ×3 (12:39→20:46)
[2022-11-30] MEDS: LATANOPROST 2.5 ML DROPS (XALATAN) BOTH EYES SCH (20:34)
[2022-11-30] MEDS: traZODone HCL 50 MG TABLET (DESYREL) PO SCH (20:36)
[2022-11-30] MEDS: INSULIN GLARGINE 100 UNITS/ML, 10 ML VIAL SUBCUT SCH (21:41)
[2022-12-01] VITALS (29 sets, daily range): BP systolic 102–149; PULSE 77–102; RESP 15–28; TEMP 96.8–98.8; O2SAT 9–100
[2022-12-01] MEDS: LevALBUTEROL HCL 1.25 MG/0.5 ML *CONC.* VIAL.NEB (XOPENEX CONC.) INH SCH ×4 (02:12→19:34)
[2022-12-01] MEDS: ACETYLCYSTEINE 20% 4 ML VIAL (RT) INH SCH ×4 (02:12→19:34)
[2022-12-01 05:18] LABS: BASOPHILS # (AUTO) 0.1 K/uL (0.0-0.2); BASOPHILS % (AUTO) 0.5 % (0.0-2.0); EOSINOPHILS # (AUTO) 0.1 K/uL (0.0-0.4); EOSINOPHILS % (AUTO) 0.9 % (0.0-4.0); HEMATOCRIT 34.7 % (36-48); HEMOGLOBIN 11.4 g/dL (12.0-16.0); LYMPHOCYTES # (AUTO) 1.2 K/uL (1.0-5.5); MEAN CORPUSCULAR HEMOGLOBIN 31 pg (27-31); MEAN CORPUSCULAR HGB CONC 33 % (32-36); MEAN CORPUSCULAR VOLUME 96 fL (79.0-98.0); MONOCYTES # (AUTO) 1.2 K/uL (0.0-1.0); MONOCYTES % (AUTO) 10.2 % (1.7-9.3); NEUTROPHILS # (AUTO) 9.4 K/uL (1.8-7.7); NEUTROPHILS % (AUTO) 78.4 % (40.0-70.0); PLATELET COUNT (AUTO) 159 K/uL (130-430); RED BLOOD CELL COUNT(AUTO) 3.64 MIL/uL (4.2-6.2); RED CELL DISTRIBUTION WIDTH 13.8 % (9.0-15.0); WHITE BLOOD COUNT (AUTO) 11.9 K/uL (4.8-10.8)
[2022-12-01 05:56] LABS: ANION GAP 4 (5-15); CALCIUM 8.7 mg/dL (8.4-11.0); CARBON DIOXIDE 35 mmol/L (23-29); CHLORIDE 98 mmol/L (98-107); CREATININE 0.95 mg/dL (0.55-1.30); GLUCOSE 253 mg/dL (74-106); POTASSIUM 3.3 mmol/L (3.5-5.1); SODIUM SERUM 137 mmol/L (136-145); UREA NITROGEN, BLOOD 18 mg/dL (8-21)
[2022-12-01] MEDS: PIPERACILLIN/TAZO 4.5GM/DEX-IS 100 ML IV SCH ×3 (06:05→21:40)
[2022-12-01] MEDS: INSULIN LISPRO SLIDING SCALE 100 UNITS/ML, 3 ML VIAL (humaLOG) SUBCUT PRN (06:11)
[2022-12-01] MEDS: FUROSEMIDE 20 MG/2 ML VIAL IVP SCH (08:54)
[2022-12-01] MEDS: DIVALPROEX SODIUM 125 MG CAP.(DEPAKOTE SPRINKLE) PO SCH (08:55)
[2022-12-01] MEDS: ATORVASTATIN 20 MG TABLET PO SCH (08:55)
[2022-12-01] MEDS: METOPROLOL TARTRATE 25 MG TABLET PO SCH ×2 (08:55→20:40)
[2022-12-01] MEDS: MEMANTINE HCL 5 MG TABLET PO SCH ×2 (08:56→20:41)
[2022-12-01] MEDS: LEVOTHYROXINE SODIUM 0.112 MG TABLET PO SCH (08:56)
[2022-12-01] MEDS: GABAPENTIN 100 MG CAPSULE PO SCH (08:56)
[2022-12-01] MEDS: D5/0.45 NS 1,000 ML IV SCH (08:57)
[2022-12-01] MEDS ORDERED: *TPN PER PHARMACY XX PRN (10:00)
[2022-12-01] MEDS ORDERED: DEXTROSE 50% JECT 50 ML DISP.SYRIN IVP PRN (10:00)
[2022-12-01 10:14] LABS: PHOSPHORUS 2.4 mg/dL (2.7-4.5)
[2022-12-01] MEDS ORDERED: KCL 40 mEq in 100 mL (PREMIX) 100 ML IV ONE (11:30)
[2022-12-01] MEDS: MORPHINE 2 MG/ML INJ. SYRINGE IVP PRN (20:36)
[2022-12-01] MEDS: traZODone HCL 50 MG TABLET (DESYREL) PO SCH (20:40)
[2022-12-01] MEDS: LATANOPROST 2.5 ML DROPS (XALATAN) BOTH EYES SCH (20:44)
[2022-12-01] MEDS ORDERED: TPN CENTRAL 0.0001 ML, SODIUM CHLORIDE 40 MEQ, POTASSIUM CHLORIDE 20 MEQ, K PHOS 9 MM, ... IV SCH ×17 (21:00)
[2022-12-01] MEDS: INSULIN GLARGINE 100 UNITS/ML, 10 ML VIAL SUBCUT SCH (21:39)
[2022-12-02] VITALS (30 sets, daily range): BP systolic 102–141; PULSE 69–102; RESP 15–39; TEMP 97.7–98.1; O2SAT 84–97
[2022-12-02] MEDS: MORPHINE 2 MG/ML INJ. SYRINGE IVP PRN ×4 (00:49→20:37)
[2022-12-02] MEDS: INSULIN REGULAR, HUMAN 100 UNITS/ML, 3 ML VIAL (humuLIN R) SUBCUT PRN ×5 (00:51→23:19)
[2022-12-02] MEDS: ACETYLCYSTEINE 20% 4 ML VIAL (RT) INH SCH ×4 (04:03→20:36)
[2022-12-02] MEDS: LevALBUTEROL HCL 1.25 MG/0.5 ML *CONC.* VIAL.NEB (XOPENEX CONC.) INH SCH ×4 (04:03→20:36)
[2022-12-02 05:47] LABS: BASOPHILS # (AUTO) 0.1 K/uL (0.0-0.2); BASOPHILS % (AUTO) 0.5 % (0.0-2.0); EOSINOPHILS # (AUTO) 0.1 K/uL (0.0-0.4); EOSINOPHILS % (AUTO) 1.1 % (0.0-4.0); HEMATOCRIT 34.8 % (36-48); HEMOGLOBIN 11.3 g/dL (12.0-16.0); LYMPHOCYTES # (AUTO) 1.6 K/uL (1.0-5.5); LYMPHOCYTES % (AUTO) 12.7 % (20.5-51.5); MEAN CORPUSCULAR HEMOGLOBIN 31 pg (27-31); MEAN CORPUSCULAR HGB CONC 32 % (32-36); MEAN CORPUSCULAR VOLUME 96 fL (79.0-98.0); MONOCYTES # (AUTO) 1.1 K/uL (0.0-1.0); MONOCYTES % (AUTO) 9.2 % (1.7-9.3); NEUTROPHILS # (AUTO) 9.5 K/uL (1.8-7.7); NEUTROPHILS % (AUTO) 76.5 % (40.0-70.0); PLATELET COUNT (AUTO) 174 K/uL (130-430); RED BLOOD CELL COUNT(AUTO) 3.62 MIL/uL (4.2-6.2); RED CELL DISTRIBUTION WIDTH 13.6 % (9.0-15.0); WHITE BLOOD COUNT (AUTO) 12.4 K/uL (4.8-10.8)
[2022-12-02] MEDS: PIPERACILLIN/TAZO 4.5GM/DEX-IS 100 ML IV SCH ×3 (06:15→22:37)
[2022-12-02] MEDS: LEVOTHYROXINE SODIUM 0.112 MG TABLET PO SCH (06:16)
[2022-12-02 06:28] LABS: ALANINE AMINOTRANSFERASE 0 U/L (12-78); ALBUMIN 2.1 g/dL (3.4-4.8); ANION GAP 5 (5-15); ASPARTATE AMINOTRANSFERASE 12 U/L (10-37); CALCIUM 8.5 mg/dL (8.4-11.0); CARBON DIOXIDE 33 mmol/L (23-29); CHLORIDE 97 mmol/L (98-107); CREATININE 0.81 mg/dL (0.55-1.30); GLUCOSE 368 mg/dL (74-106); PHOSPHORUS 1.8 mg/dL (2.7-4.5); POTASSIUM 3.7 mmol/L (3.5-5.1); SODIUM SERUM 135 mmol/L (136-145); TOTAL BILIRUBIN 0.5 mg/dL (0.0-1.0); TOTAL PROTEIN, SERUM 6.2 g/dL (6.4-8.3); UREA NITROGEN, BLOOD 16 mg/dL (8-21)
[2022-12-02] MEDS: FUROSEMIDE 20 MG/2 ML VIAL IVP SCH (07:33)
[2022-12-02] MEDS: DIVALPROEX SODIUM 125 MG CAP.(DEPAKOTE SPRINKLE) PO SCH (09:00)
[2022-12-02] MEDS: METOPROLOL TARTRATE 25 MG TABLET PO SCH ×2 (09:00→20:34)
[2022-12-02] MEDS: ATORVASTATIN 20 MG TABLET PO SCH (09:00)
[2022-12-02] MEDS: MEMANTINE HCL 5 MG TABLET PO SCH ×2 (09:00→20:34)
[2022-12-02] MEDS: GABAPENTIN 100 MG CAPSULE PO SCH (09:36)
[2022-12-02] MEDS: LATANOPROST 2.5 ML DROPS (XALATAN) BOTH EYES SCH (20:33)
[2022-12-02] MEDS: traZODone HCL 50 MG TABLET (DESYREL) PO SCH (20:34)
[2022-12-02] MEDS: INSULIN GLARGINE 100 UNITS/ML, 10 ML VIAL SUBCUT SCH (20:36)
[2022-12-02] MEDS ORDERED: TPN CENTRAL 0.0001 ML, SODIUM CHLORIDE 60 MEQ, POTASSIUM CHLORIDE 20 MEQ, K PHOS 15 MM,... IV SCH ×9 (21:00)
[2022-12-03] VITALS (21 sets, daily range): BP systolic 105–133; PULSE 86–107; RESP 14–36; TEMP 96.5–97.9; O2SAT 92–100
[2022-12-03] MEDS: MORPHINE 2 MG/ML INJ. SYRINGE IVP PRN (02:41)
[2022-12-03] MEDS: ACETYLCYSTEINE 20% 4 ML VIAL (RT) INH SCH ×3 (05:29→12:13)
[2022-12-03] MEDS: LevALBUTEROL HCL 1.25 MG/0.5 ML *CONC.* VIAL.NEB (XOPENEX CONC.) INH SCH ×3 (05:29→12:14)
[2022-12-03 06:24] LABS: HEMOGLOBIN 13.1 g/dL (12.0-16.0); MEAN CORPUSCULAR HEMOGLOBIN 32 pg (27-31); MEAN CORPUSCULAR HGB CONC 33 % (32-36); MEAN CORPUSCULAR VOLUME 97 fL (79.0-98.0); PLATELET COUNT (AUTO) 218 K/uL (130-430); RED BLOOD CELL COUNT(AUTO) 4.14 MIL/uL (4.2-6.2); RED CELL DISTRIBUTION WIDTH 13.9 % (9.0-15.0); WHITE BLOOD COUNT (AUTO) 15.3 K/uL (4.8-10.8)
[2022-12-03] MEDS: PIPERACILLIN/TAZO 4.5GM/DEX-IS 100 ML IV SCH ×2 (06:35→13:45)
[2022-12-03] MEDS: LEVOTHYROXINE SODIUM 0.112 MG TABLET PO SCH (06:36)
[2022-12-03] MEDS: INSULIN REGULAR, HUMAN 100 UNITS/ML, 3 ML VIAL (humuLIN R) SUBCUT PRN ×2 (06:37→12:22)
[2022-12-03 06:42] LABS: ALANINE AMINOTRANSFERASE 8 U/L (12-78); ALBUMIN 2.3 g/dL (3.4-4.8); ANION GAP 3 (5-15); ASPARTATE AMINOTRANSFERASE 12 U/L (10-37); CALCIUM 8.6 mg/dL (8.4-11.0); CARBON DIOXIDE 36 mmol/L (23-29); CHLORIDE 94 mmol/L (98-107); CREATININE 0.99 mg/dL (0.55-1.30); PHOSPHORUS 2.5 mg/dL (2.7-4.5); POTASSIUM 3.7 mmol/L (3.5-5.1); SODIUM SERUM 133 mmol/L (136-145); TOTAL BILIRUBIN 0.7 mg/dL (0.0-1.0); TOTAL PROTEIN, SERUM 7.1 g/dL (6.4-8.3); UREA NITROGEN, BLOOD 20 mg/dL (8-21)
[2022-12-03 07:27] LABS: GLUCOSE 440 mg/dL (74-106)
[2022-12-03] MEDS: DIVALPROEX SODIUM 125 MG CAP.(DEPAKOTE SPRINKLE) PO SCH (08:09)
[2022-12-03] MEDS: MEMANTINE HCL 5 MG TABLET PO SCH (08:09)
[2022-12-03] MEDS: ATORVASTATIN 20 MG TABLET PO SCH (08:09)
[2022-12-03] MEDS: METOPROLOL TARTRATE 25 MG TABLET PO SCH (08:09)
[2022-12-03] MEDS: GABAPENTIN 100 MG CAPSULE PO SCH (08:10)
[2022-12-03] MEDS: FUROSEMIDE 20 MG/2 ML VIAL IVP SCH (08:10)
[2022-12-03] MEDS ORDERED: INSULIN GLARGINE 100 UNITS/ML, 10 ML VIAL SUBCUT ONE (09:00)
[2022-12-03 09:30] LABS: BAND % (MANUAL) 2 % (0-6); BASOPHILS % (MANUAL) 0 % (0-2); EOSINOPHILS % (MANUAL) 1 % (0-7); LYMPHOCYTES % (MANUAL) 13 % (20-46); METAMYELOCYTES % 1 % (0-0); MONOCYTES % (MANUAL) 6 % (0-11); PLATELET ESTIMATE ADEQUATE (ADEQUATE)
[2022-12-03] MEDS ORDERED: MORPHINE SULFATE IN 0.9 % NACL 100 ML IV PRN (14:15)
[2022-12-03] MEDS ORDERED: NALOXONE HCL 0.4 MG/ML AMP (NARCAN) IVP PRN (14:15)
[2022-12-03] MEDS ORDERED: FAT EMULSIONS 250 ML IV SCH (21:00)
[2022-12-03] MEDS ORDERED: [UNRECOGNIZED DRUG - OTHER] IV SCH ×9 (21:00)
[2022-12-03] MEDS ORDERED: TPN CENTRAL IV SCH ×9 (21:00)
[2022-12-03] MEDS ORDERED: POTASSIUM CHLORIDE IV SCH ×9 (21:00)
[2022-12-03] MEDS ORDERED: SODIUM CHLORIDE IV SCH ×9 (21:00)
[2022-12-04 01:03] VITALS: BP_SYST 126; PULSE 109; RESP 18; TEMP 98.5; O2SAT 98
[2022-12-04 03:55] VITALS: O2SAT 98
[2022-12-04 07:10] LABS: ALANINE AMINOTRANSFERASE 6 U/L (12-78); ALBUMIN 2.2 g/dL (3.4-4.8); ANION GAP 3 (5-15); ASPARTATE AMINOTRANSFERASE 14 U/L (10-37); CALCIUM 8.8 mg/dL (8.4-11.0); CARBON DIOXIDE 36 mmol/L (23-29); CHLORIDE 97 mmol/L (98-107); CREATININE 1.14 mg/dL (0.55-1.30); GLUCOSE 179 mg/dL (74-106); PHOSPHORUS 3.8 mg/dL (2.7-4.5); POTASSIUM 3.9 mmol/L (3.5-5.1); SODIUM SERUM 136 mmol/L (136-145); TOTAL BILIRUBIN 0.7 mg/dL (0.0-1.0); TOTAL PROTEIN, SERUM 7.1 g/dL (6.4-8.3); UREA NITROGEN, BLOOD 28 mg/dL (8-21)
[2022-12-04 08:00] VITALS: BP_SYST 123; PULSE 121; RESP 20; TEMP 98.6; O2SAT 97
[2022-12-04 08:39] VITALS: BP_SYST 123; PULSE 121; O2SAT 97
[2022-12-04 15:44] VITALS: BP_SYST 116; PULSE 132; RESP 20; TEMP 98.4; O2SAT 90
[2022-12-04] MEDS: LORazepam 2 MG/ML VIAL IVP PRN ×2 (17:31→23:03)
[2022-12-04 20:00] VITALS: BP_SYST 120; PULSE 134; RESP 18; TEMP 98.6; O2SAT 90; O2SAT 92
[2022-12-05 00:33] VITALS: BP_SYST 112; PULSE 146; RESP 21; TEMP 97.6; O2SAT 96
== END 2022-12-05 02:36 | DRG 871 ==
LOC: SED 17:22 → SIC 21:08 → SMU 12-03 18:50 → STU 12-03 18:59
PROVIDERS: ADMIT Family Medicine; ATTEND Family Medicine
PROC: 02HV33Z Insertion of Infusion Device into Superior Vena Cava, Percutaneous Approach (ICD-10-PCS; 2022-11-23)
PROC: B548ZZA Ultrasonography of Superior Vena Cava, Guidance (ICD-10-PCS; 2022-11-23)
PROC: 5A0935A Assistance with Respiratory Ventilation, Less than 24 Consecutive Hours, High Flow/Velocity Cannula (ICD-10-PCS; principal; 2022-12-01)
DX: A41.9 Sepsis, unspecified organism (principal); J18.9 Pneumonia, unspecified organism; J96.01 Acute respiratory failure with hypoxia; J69.0 Pneumonitis due to inhalation of food and vomit; N39.0 Urinary tract infection, site not specified; I48.20 Chronic atrial fibrillation, unspecified; E03.9 Hypothyroidism, unspecified; I25.10 Atherosclerotic heart disease of native coronary artery without angina pectoris; E11.21 Type 2 diabetes mellitus with diabetic nephropathy; E11.40 Type 2 diabetes mellitus with diabetic neuropathy, unspecified; E78.5 Hyperlipidemia, unspecified; Z20.822 Contact with and (suspected) exposure to COVID-19; I25.5 Ischemic cardiomyopathy; G30.9 Alzheimer's disease, unspecified; F02.80 Dementia in other diseases classified elsewhere, unspecified severity, without behavioral disturbance, psychotic disturbance, mood disturbance, and anxiety; R13.10 Dysphagia, unspecified; L40.9 Psoriasis, unspecified; R53.81 Other malaise; I11.0 Hypertensive heart disease with heart failure; I50.9 Heart failure, unspecified; I25.2 Old myocardial infarction; Z79.4 Long term (current) use of insulin; Z79.899 Other long term (current) drug therapy; Z78.1 Physical restraint status; Z87.440 Personal history of urinary (tract) infections; Z66 Do not resuscitate
CPT/HCPCS: 36415; 36600; 71045; 71250-TC; 76376; 80048; 80053; 81000; 81003; 82803; 82962; 83735; 83880; 84100; 84443; 84478; 84484; 85007; 85025; 85027; 85610-TC; 85730-TC; 87040; 87081; 87086; 92610-GN; 93005; 94003; 94640; 94668; 96365; 96372; 96375; 99285; A6209; C1751; G0378; J0696; J1650; J1815; J1940; J2060; J2270; J2543; J3475; J3480; J3490; J7030; J7050; J7060; J7131; J7608; J7612